=== PATIENT | male | born 1955 | race Caucasian/White ===

== ENCOUNTER 2018-02-19 16:11 | Emergency (ER) | payer OTHER ==
[2018-02-19 16:32] VITALS: BP 144/72
--- NOTE | 2018-02-19 17:04 | UC ---
Skin Complaint HPI - HPI Summary HPI Summary: Discoloration on base of R thumb starting a couple hours ago. Just prior to it showing up, pt was cleaning out septic tank in and came in contact with human waste. Is worried about infection. Denies pain. - History of Current Complaint Chief Complaint: UCUpperExtremity Time Seen by Provider: 02/19/18 16:49 Stated Complaint: RIGHT HAND COMPLAINT Hx Obtained From: Patient Onset/Duration: Sudden Onset, Lasting Hours Skin Exposure Onset/Duration: Hours Ago Timing: Constant Onset Severity: Mild Current Severity: Mild Pain Intensity: 0 Location: Discrete Aggravating Factor(s): Nothing Alleviating Factor(s): Nothing Associated Signs & Symptoms: Positive: Rash - Allergy/Home Medications Allergies/Adverse Reactions: Allergies Allergy/AdvReac Type Severity Reaction Status Date / Time Sulfa (Sulfonamide Allergy Swelling Verified 02/19/18 16:27 Antibiotics) Home Medications: Home Medications Dexlansoprazole [Dexilant] 1 tab DAILY 02/19/18 [History Confirmed 02/19/18] Ethacrynic Acid 1 tab DAILY 02/19/18 [History Confirmed 02/19/18] Sitagliptin Phosphate [Januvia] 100 mg DAILY 02/19/18 [History Confirmed ] glipiZIDE TAB* [Glucotrol TAB*] 1 tab DAILY 02/19/18 [History Confirmed 02/19/18 ] metFORMIN* [Glucophage 1000 MG TAB *] 1 tab BID 02/19/18 [History Confirmed ] Review of Systems Constitutional: Negative Skin: Rash Eyes: Negative ENT: Negative Respiratory: Negative Cardiovascular: Negative Gastrointestinal: Negative Genitourinary: Negative Motor: Negative Neurovascular: Negative Musculoskeletal: Negative Neurological: Negative Psychological: Negative Is Patient Immunocompromised?: No All Other Systems Reviewed And Are Negative: Yes PMH/Surg Hx/FS Hx/Imm Hx Endocrine History: Dyslipidemia Cardiovascular History: Hypertension - Surgical History Surgical History: Yes Surgery Procedure, Year, and Place: RIGHT/LEFT KNEE. BACK SURGERY - Family History Known Family History: Positive: Hypertension - Social History Occupation: Retired Lives: With Family Alcohol Use: Occasionally Substance Use Type: None Smoking Status (MU): Never Smoked Tobacco - Immunization History Most Recent Tetanus Shot: UTD Physical Exam Triage Information Reviewed: Yes Appearance: Well-Appearing, No Pain Distress, Well-Nourished Vital Signs: Initial Vital Signs Temp 97.4 F 02/19/18 16:27 Pulse 78 02/19/18 16:27 Resp 16 02/19/18 16:27 BP 144/72 02/19/18 16:27 Pulse Ox 98 02/19/18 16:27 Vital Signs Reviewed: Yes Eye Exam: Normal Eyes: Positive: Conjunctiva Clear ENT Exam: Normal ENT: Positive: Normal ENT inspection, Hearing grossly normal, Pharynx normal, Pharyngeal erythema, TMs normal Dental Exam: Normal Neck exam: Normal Neck: Positive: Supple, Nontender, No Lymphadenopathy Respiratory Exam: Normal Respiratory: Positive: Chest non-tender, Lungs clear, Normal breath sounds, No respiratory distress, No accessory muscle use Cardiovascular Exam: Normal Cardiovascular: Positive: RRR, No Murmur Musculoskeletal Exam: Normal Musculoskeletal: Positive: Strength Intact, ROM Intact Neurological Exam: Normal Neurological: Positive: Alert Psychological Exam: Normal Skin Exam: Other - dark, slightly purple well-demarcated area of discoloration on R hand over 1st MC. No swelling, tenderness, or streaking. Course/Dx - Diagnoses Provider Diagnoses: R hand ecchymosis. Elevated blood pressure Discharge - Sign-Out/Discharge Documenting (check all that apply): Patient Departure All imaging exams completed and their final reports reviewed: No Studies - Discharge Plan Condition: Stable Disposition: HOME Prescriptions: Amoxicillin/Clavulanate TAB* [Augmentin TAB 875*] 875 mg PO BID #10 tab Patient Education Materials: Ecchymosis (ED) Referrals: No Primary Care Phys,NOPCP [Primary Care Provider] - Additional Instructions: As we discussed, the discoloration on your hand does NOT look like infection to me, and I do not think you'll need to take the antibiotic. However, since you will not be in town to recheck, I have prescribed an antibiotic for you to carry with you. If your hand becomes steadily more painful, has increasing redness, or develops streaking up the arm you should take the entire course of augmentin and follow up with your PCP. - Billing Disposition and Condition Condition: STABLE Disposition: Home
== END 2018-02-19 17:03 | disposition home or self-care (01) ==
LOC: UCCORT 16:11
DX: R23.3 Spontaneous ecchymoses (principal); R03.0 Elevated blood-pressure reading, without diagnosis of hypertension; I10 Essential (primary) hypertension; Z88.2 Allergy status to sulfonamides
CPT/HCPCS: 99202; G0463